=== PATIENT | male | born 1950 | race Caucasian/White ===

== ENCOUNTER 2016-08-23 10:40 | Emergency (ER) | payer MEDICARE, OTHER ==
[2016-08-23 11:46] LABS: Hematocrit 45.4 % (42.0-52.0); Hemoglobin 14.7 gm/dL (13.5-18.0); Mean Cell Volume 92.3 fl (78-100); Mean Corpuscular Hemoglobin 29.9 pg (27-31); Mean Corpuscular Hgb Conc 32.4 g/dl (32-36); Mean Platelet Volume 10.1 fl (6.0-9.5); Neutrophil # 4.5 K/mm3 (1.3-6.0); Neutrophil % 63.9 % (42-75.0); Platelet Count 202 K/mm3 (150-450); Red Blood Count 4.92 M/mm3 (4.7-6.0); Red Cell Distribution Width 14.6 % (11.5-14.0); White Blood Count 7.1 K/mm3 (4.0-10.5)
--- OUTSIDE RECORDS SUMMARY | 2016-08-23 11:56 | XMS REPORT | Continuity of Care Document ---
:1950 Author Organization [facility] ([facility]) Address [address] [place] [address] Phone [phone] Care Team Providers Name Role Phone Denis Boateng Primary Care Provider [phone] Source Comments This disclosure is being made pursuant to the Care Everywhere program, applicable federal and state laws, and may not contain all informaitonavailable regarding this patient.[facility] ([facility]) Active Allergies and Adverse Reactions Allergen Noted Date Severity Reactions Comments Ciprofloxacin Hcl 10/19/2010 OTHER Sulfa (Sulfonamide Antibiotics) 10/19/2010 OTHER Current Medications Prescription Sig. Disp. Refills Start Date End Date Status valsartan (DIOVAN) 80 mg Take 80 mg by Active tablet mouth daily. tamsulosin (FLOMAX) 0.4 mg Take 0.4 mg by Active ER capsule mouth daily. OXYGEN-AIR DELIVERY Active SYSTEMS (HORIZON NASAL CPAP SYSTEM NA ) GLUC LIZARRAGA/CHONDRO LIZARRAGA A/VIT Take 2 Tabs by Active C/MN (GLUCOSAMINE 1500 mouth daily. COMPLEX PO) MULTI-VITAMIN PO Take by mouth. Active CINNAMON BARK (CINNAMON Take 1 Tab by Active PO) mouth daily. CALCIUM CARBONATE/VITAMIN Take 1 Tab by Active D2 (CALCIUM + VITAMIN D mouth daily. PO) Active Problems Problem Noted Date Retinal hole or tear OS 04/05/2011 PVD (posterior vitreous detachment), left eye 01/04/2011 Social History Tobacco Use Types Packs/Day Years Used Date Never Smoker Smokeless Tobacco: Never Used Alcohol Use Drinks/Week oz/Week Comments No Plan of Care Health Maintenance Due Date Last Done Comments HCV Screening 1950 Hepatitis B Vaccine (1 of 3 - Primary Series) 1950 Tdap Vaccine 1960 Lipid Disorder Screening 1967 Td Vaccine 1967 Colonoscopy 1999 Prostate Cancer Screening 1999 Zoster Vaccine 2009 Pneumococcal Vaccine (1 of 2 - PCV13) 2014 Influenza Vaccine: Seasonal (#1) 01/26/2016 Results from Last 3 Months Not on file
[2016-08-23 12:07] LABS: Albumin * 3.7 gm/dl (3.4-5.0); Anion Gap 14.7 mmol/L (6.8-13.8); BUN/Creatinine Ratio 24.3 (9.0-21.6); Bilirubin, Total 0.9 mg/dL (0.0-1.1); Ca. Corrected For Albumin 9.2 mg/dL (8.4-10.2); Calcium * 9.3 mg/dL (7.9-10.9); Carbon Dioxide 27.7 mmol/L (24-32.6); Magnesium 2.1 mg/dL (1.2-2.8); Potassium 4.4 mmol/L (3.4-4.6); Total Protein 7.3 gm/dL (6.2-8.2)
[2016-08-23 12:08] LABS: Troponin I 0.971 ng/ml (0.00-0.10)
[2016-08-23] MEDS ORDERED: HEPARIN SODIUM,PORCINE 5,000 UNITS/ML VIAL ONE (12:27)
[2016-08-23] MEDS ORDERED: ASPIRIN 81 MG TAB.CHEW ONE (12:28)
[2016-08-23] MEDS ORDERED: HEPARIN SODIUM,PORCINE 5,000 UNITS/ML VIAL IV ONE (12:30)
[2016-08-23] MEDS ORDERED: ASPIRIN 81 MG TAB.CHEW PO ONE (12:30)
--- NOTE | 2016-08-23 12:54 | ERNOTE ---
Medical Problem HPI - Narrative Date of Service: 08/23/16 - presents with increasing shortness of breath over the last several days states it's even difficult for him to walk even short distance without being short of breath now he did have an episode of left-sided left arm pain several days ago but that appears to resolve now - General Chief Complaint: General Assessment Time Seen by Provider: 08/23/16 11:07 Source: patient, family Exam Limitations: no limitations - Immun/Allergies/Home Medications Allergies/Adverse Reactions: Allergies ciprofloxacin [From Cipro] Adverse Reaction (Verified 08/23/16 10:49) Nausea ciprofloxacin HCl [From Cipro] Adverse Reaction (Verified 08/23/16 10:49) Nausea Sulfa (Sulfonamide Antibiotics) Adverse Reaction (Verified 08/23/16 10:49) blister to big toes Home Medications: HOME MEDICATIONS Multi Vitamin Daily PO DAILY 03/29/14 [Last Taken 03/29/14] Cinnamon 500 mg PO DAILY 11/12/14 [Last Taken Unknown] Ascorbic Acid [Vitamin C] 500 mg PO DAILY 08/23/16 [Last Taken Unknown] Aspirin Buffered 325 mg Tab 325 mg PO DAILY 08/23/16 [Last Taken Unknown] Calcium Carbonate/Vitamin D3 [Calcium 600 + D3 Softgel] 1 each PO DAILY [Last Taken Unknown] Garcinia Cambogia Tablet 08/23/16 [Last Taken Unknown] Gluc Edward/Chondro Edward A/Vit C/Mn [Glucosamine 1,500 Complex Cp] 1 each PO DAILY [Last Taken Unknown] Magnesium 400 mg PO DAILY 08/23/16 [Last Taken Unknown] Rolfe-3S/Dha/Epa/Fish Oil [Fish Oil 1,200 mg Softgel] 1 each PO DAILY 08/23/16 [ Last Taken Unknown] Pyridoxine HCl [Vitamin B-6] 25 mg PO DAILY 08/23/16 [Last Taken Unknown] Valsartan/Hydrochlorothiazide [Diovan Hct 80-12.5 mg Tablet] 1 each PO DAILY [Last Taken Unknown] - History of Present History Narrative: She states that he is becoming increasingly more short of breath over the last several days and that was old of left arm pain several days ago that presented to resolve now he is not able to delineate any specific chest pain diaphoresis or neck or jaw pain however Timing: constant, getting worse Severity: moderate Modifying Factors - (Improves): Present: rest Review of Systems - Review of Systems Constitutional: Present: no symptoms reported, See HPI EYE: Present: no symptoms reported ENT: Present: no symptoms reported Respiratory: Present: shortness of breath Cardiology: Present: no symptoms reported Gastrointestinal/Abdominal: Present: no symptoms reported Genitourinary: Present: no symptoms reported Musculoskeletal: Present: no symptoms reported Skin: Present: no symptoms reported Neurological: Present: no symptoms reported Endocrine: Present: no symptoms reported Hematologic/Lymphatic: Present: no symptoms reported Psych: Present: no symptoms reported - Patient's Past Medical History Patient History - Medical: Other Patient History - Cardiac/Respiratory: Hypertension, Hyperlipidemia, Sleep Apnea Patient History - Cancer: No Hx of Cancer Patient History - Other: None - Social History Living Situations: home Psych History: No pertinent hx Physical Exam - Physical Exam General Appearance: Present: wd/wn, alert, mild distress Eye Exam: Normal inspection: bilateral, PERRL: bilateral Ears, Nose, Throat: Present: normal ENT inspection, hearing grossly normal, normal pharynx Neck: Present: normal inspection, nontender Respiratory: Present: no respiratory distress, normal breath sounds, no accessory muscle use, chest nontender, lungs clear Cardiovascular/Chest: Present: regular rate, rhythm, no murmur, normal peripheral pulses, extra beats Gastrointestinal/Abdominal: Present: normal bowel sounds, nontender, nondistended, soft, no organomegaly Rectal Exam: Present: deferred Back Exam: Present: normal inspection, normal range of motion Extremity Exam: Present: normal inspection, non-tender, no edema, normal range of motion Neurological Exam: Present: alert, oriented, normal mood/affect Skin Exam: Present: normal color, warm/dry Lymphatic Exam: Present: no adenopathy ED Progress - Results and Orders Patient's Lab Results:: I have reviewed the patient's lab results. - Vital Signs Patient's Vital Signs:: I have reviewed the patient's vital signs. Vital Signs: Vital Signs 08/23/16 10:44 Temperature 35.7 C L Pulse Rate 74 Respiratory 12 Rate Blood Pressure 123/71 O2 Sat by Pulse 96 Oximetry - EKG EKG: NSR - X-Ray X-Ray #1 X-Ray: chest Interpretation: Reviewed by me - Progress/Reassessment Chief Complaint: General Assessment Progress:: Unchanged - Transfer of Care Expected Disposition: Transfer Additional Notes: Given the presence of the elevated troponin patient likely has incurred a non- ST elevation OH at some time in the recent past. Patient to be transferred to [facility] where they have cardiology present to assist us in both an echocardiogram about possible PTCA and further evaluation and stabilization. Plan - Plan Plan: Discussed the patient with Dr. Kent at [facility] and he has agreed to accept transfer the patient there. Departure - Departure Clinical Impression: NSTEMI (non-ST elevated myocardial infarction) Disposition: [facility] Condition: Serious Referrals: Sheryl Peng MD [Primary Care Provider] -
[2016-08-23 13:01] VITALS: BP 130/91
== END 2016-08-23 12:50 | disposition short-term general hospital (02) ==
LOC: ER 10:40
DX: I21.4 Non-ST elevation (NSTEMI) myocardial infarction (principal); I10 Essential (primary) hypertension; E78.5 Hyperlipidemia, unspecified